=== PATIENT | male | born 1955 | race Caucasian/White ===

== ENCOUNTER 2019-03-15 16:14 | Inpatient (IN) | payer BC ==
[~2019-03-15] VITALS: Ht 182.9 cm; Wt 127.9 kg
[~2019-03-15 16:14] MED LIST: ASPI-1264 PO; ATOR80TA PO; CARV10CP PO; CLOP75TA35 PO; LISI-600 PO; NIA500ERT PO; NITR0.4T48 SL; PANT40TA4 PO; SUCR1TAB PO
[2019-03-15 17:12] LABS: BASOPHILS # (AUTO) 0.1 X10'3 (0-0.2); BASOPHILS % (AUTO) 0.6 % (0-1); EOSINOPHILS # (AUTO) 0.4 X10'3 (0-0.9); EOSINOPHILS % (AUTO) 4.1 % (0-6); HEMATOCRIT 48.3 % (42.0-52.0); HEMOGLOBIN 16.2 g/dl (14.0-17.9); LYMPHOCYTES # (AUTO) 2.1 X10'3 (1.1-4.8); LYMPHOCYTES % (AUTO) 24.2 % (21-51); MEAN CORPUSCULAR HEMOGLOBIN 29.9 PG (27.0-31.0); MEAN CORPUSCULAR HGB CONC 33.5 g/dL (33.0-36.5); MEAN CORPUSCULAR VOLUME 89.2 FL (78-98); MEAN PLATELET VOLUME 8.3 FL (7.4-10.4); MONOCYTES # (AUTO) 1.1 X10'3 (0-0.9); MONOCYTES % (AUTO) 12.5 % (2-12); NEUTROPHILS # (AUTO) 5.1 X10'3 (1.8-7.7); NEUTROPHILS % (AUTO) 58.6 % (42-75); PLATELET COUNT 164 X10'3 (140-440); RED BLOOD COUNT 5.42 X10'6 (4.70-6.10); RED CELL DISTRIBUTION WIDTH 14.7 % (11.5-14.5); WHITE BLOOD COUNT 8.7 X10'3 (4.5-11.0)
[2019-03-15 17:26] LABS: PARTIAL THROMBOPLASTIN TIME 26 SECONDS (22-32)
[2019-03-15 17:29] LABS: ALANINE AMINOTRANSFERASE 73 U/L (12-78); ALBUMIN 4.3 G/DL (3.4-5.0); ALBUMIN/GLOBULIN RATIO 1.2 (1.1-1.5); ALKALINE PHOSPHATASE 66 IU/L (46-116); ANION GAP 10 (8-16); BILIRUBIN,TOTAL 0.4 MG/DL (0.1-1.0); BLOOD UREA NITROGEN 25 MG/DL (7-18); BUN/CREATININE RATIO 23.8 (5.4-32.0); CALCIUM 9.6 MG/DL (8.5-10.1); CHLORIDE 106 MMOL/L (99-107); CREATININE 1.05 MG/DL (0.60-1.10); SODIUM 141 MMOL/L (135-145); TOTAL CARBON DIOXIDE 25.5 MMOL/L (24-32); TOTAL PROTEIN 7.8 G/DL (6.4-8.2); eGFR 71 ML/MIN
[2019-03-15 17:32] LABS: ASPARTATE AMINO TRANSFERASE 29 U/L (10-37); GLUCOSE 101 MG/DL (70-104); POTASSIUM 4.4 MMOL/L (3.5-5.1)
[2019-03-15] MEDS ORDERED: morphine 4 MG/ML inj SYRINge IV ONE (18:40)
[2019-03-15] MEDS ORDERED: nitroGLYCERIN 0.4mg SUBLingual tab SL PRN ×3 (18:40→19:45)
[2019-03-15] MEDS ORDERED: aspirin 81mg tab.chew PO ONE (18:40)
[2019-03-15] MEDS ORDERED: ondansetron/PF 4mg/2ml inj IV ONE (18:40)
[2019-03-15] MEDS ORDERED: magnesium 2GM in 50ml NS 50 ML IV PRN (19:45)
[2019-03-15] MEDS ORDERED: acetaminophen 325mg tablet PO PRN (19:45)
[2019-03-15] MEDS ORDERED: magnesium 4gm in 100ml NS 100 ML IV PRN (19:45)
[2019-03-15] MEDS ORDERED: aminophylline 250mg/10ml inj. IV PRN (19:45)
[2019-03-15] MEDS ORDERED: regadenoson 0.4mg/5ml syringe IV PRN (19:45)
[2019-03-15] MEDS ORDERED: potassium Cl 20 mEq SR tablet PO PRN ×2 (19:45)
[2019-03-15] MEDS ORDERED: metoprolol tartrate 1mg/ml inj IV PRN (19:45)
[2019-03-15] MEDS ORDERED: potassium CL 10mEq/100ml bag 100 ML IV PRN ×2 (19:45)
[2019-03-15] MEDS ORDERED: docusate sod 100mg capsule PO PRN (19:45)
[2019-03-15] MEDS ORDERED: mag hydrox/Alum hydrox/simeth 30ml oral suspension PO PRN (19:45)
[2019-03-15] MEDS ORDERED: HYDROcodone/acetaminophen 10/325mg tab PO PRN (19:45)
[2019-03-15] MEDS ORDERED: HYDROcodone/acetaminophen 5mg/325mg tablet PO PRN (19:45)
[2019-03-15] MEDS: clopidogrel 75mg tablet PO SCH (20:15)
[2019-03-15] MEDS: carvedilol 6.25mg tablet PO SCH (20:15)
[2019-03-15] MEDS: atorvastatin 20mg tablet PO SCH (20:15)
[2019-03-15] MEDS: aspirin 325mg tablet PO SCH (20:16)
[2019-03-15] MEDS: lisinopril 20mg tablet PO SCH (20:16)
[2019-03-15] MEDS ORDERED: non-formulary drug (Atorvastatin Calcium* (Lipitor*) 80 MG) PO SCH (21:00)
[2019-03-15] MEDS ORDERED: CARVEDILOL PHOSPHATE 20 MG PO SCH (21:00)
--- NOTE | 2019-03-15 21:45 | NUR ---
Patient in room MED 313. I have received report from Tahira TAYLOR RN and had the opportunity to ask questions and assume patient care.
[2019-03-15 22:00] VITALS: BP 120/61
[2019-03-15] MEDS: ondansetron/PF 4mg/2ml inj IV PRN (22:09)
[2019-03-15] MEDS: niacin 500mg ER (Niaspan) tablet PO SCH (22:20)
[2019-03-16] VITALS (16 sets, daily range): BP systolic 86–123; BP diastolic 44–81
--- NOTE | 2019-03-16 01:00 | NUR ---
SPOKE WITH dR. Edward, HE IS CANCELLING TOM AND NPO MIDNIGHT ORDERS, WOULD JUST LIKE CARDIOLOGY TO DECIDE PLAN OF TREATMENT IN AM.
[2019-03-16] MEDS ORDERED: LORazepam 2 mg/ml vial IV PRN (04:45)
[2019-03-16 05:47] LABS: BASOPHILS % (AUTO) 0.5 % (0-1); EOSINOPHILS # (AUTO) 0.2 X10'3 (0-0.9); EOSINOPHILS % (AUTO) 2.6 % (0-6); HEMATOCRIT 44.7 % (42.0-52.0); HEMOGLOBIN 14.6 g/dl (14.0-17.9); LYMPHOCYTES # (AUTO) 1.6 X10'3 (1.1-4.8); LYMPHOCYTES % (AUTO) 20.1 % (21-51); MEAN CORPUSCULAR HEMOGLOBIN 29.5 PG (27.0-31.0); MEAN CORPUSCULAR HGB CONC 32.7 g/dL (33.0-36.5); MEAN PLATELET VOLUME 8.3 FL (7.4-10.4); MONOCYTES # (AUTO) 0.6 X10'3 (0-0.9); MONOCYTES % (AUTO) 7.8 % (2-12); NEUTROPHILS # (AUTO) 5.5 X10'3 (1.8-7.7); PLATELET COUNT 131 X10'3 (140-440); RED BLOOD COUNT 4.96 X10'6 (4.70-6.10); RED CELL DISTRIBUTION WIDTH 14.3 % (11.5-14.5)
[2019-03-16 05:52] LABS: ALANINE AMINOTRANSFERASE 68 U/L (12-78); ALBUMIN 3.7 G/DL (3.4-5.0); ALBUMIN/GLOBULIN RATIO 1.2 (1.1-1.5); ALKALINE PHOSPHATASE 51 IU/L (46-116); ANION GAP 8 (8-16); ASPARTATE AMINO TRANSFERASE 29 U/L (10-37); BILIRUBIN,TOTAL 0.7 MG/DL (0.1-1.0); BLOOD UREA NITROGEN 23 MG/DL (7-18); CHLORIDE 104 MMOL/L (99-107); CREATININE 0.92 MG/DL (0.60-1.10); GLUCOSE 96 MG/DL (70-104); POTASSIUM 4.1 MMOL/L (3.5-5.1); SODIUM 138 MMOL/L (135-145); TOTAL CARBON DIOXIDE 25.8 MMOL/L (24-32); TOTAL PROTEIN 6.7 G/DL (6.4-8.2); eGFR 83 ML/MIN
[2019-03-16 05:59] LABS: CHOL/HDL RATIO 2.7 (0.00-4.99); CHOLESTEROL 163 MG/DL (0-200); HDL CHOLESTEROL 60 MG/DL (35-60); LDL CHOLESTEROL 92 MG/DL (50-100); MAGNESIUM 1.9 MG/DL (1.5-2.4); TRIGLYCERIDES 64 MG/DL (20-135)
--- NOTE | 2019-03-16 06:03 | NUR ---
Problems reprioritized. Patient report given, questions answered & plan of care reviewed with Blake MCBRIDE.
[2019-03-16] MEDS: famotidine 20mg tablet PO SCH ×2 (07:37→20:11)
[2019-03-16] MEDS: ondansetron/PF 4mg/2ml inj IV PRN (07:37)
[2019-03-16] MEDS: folic acid 1mg tablet PO SCH (07:38)
[2019-03-16] MEDS: multivitamins, therapeutics tablet PO SCH (07:38)
[2019-03-16] MEDS: thiamine 100mg tablet PO SCH (07:38)
[2019-03-16] MEDS: carvedilol 6.25mg tablet PO SCH ×2 (07:40→20:13)
[2019-03-16] MEDS: K and/or MAG REPLACEMENT MC SCH (08:00)
[2019-03-16] MEDS ORDERED: LIDOcaine/PRILOcaine 5gm cream TP ONE (09:20)
[2019-03-16] MEDS ORDERED: iohexol 350MG/ML 100ml bottle IV ONE (18:02)
[2019-03-16] MEDS ORDERED: LIDOcaine 1% (10mg/ml)w/preservative injection 20ml MDV ONE (18:02)
[2019-03-16] MEDS ORDERED: midazolam 2 mg/2 ml injection ONE (18:02)
[2019-03-16] MEDS ORDERED: heparin 1,000unit/ml 10ml vial 10 ML ONE (18:02)
[2019-03-16] MEDS ORDERED: fentaNYL/PF 50MCG/1 ML 2ML syringe ONE (18:02)
[2019-03-16] MEDS ORDERED: iohexol 350 MG/ML 50ML vial IV ONE (18:02)
[2019-03-16] MEDS ORDERED: nitroGLYCERIN-Tridil 50MG/D5W 250 ML IV ONE (18:02)
--- NOTE | 2019-03-16 18:16 | NUR ---
Patient in room MED 313. I have received report from Blake MCBRIDE and had the opportunity to ask questions and assume patient care.
[2019-03-16] MEDS ORDERED: verapamil 2.5 mg/ml inj IV ONE (18:21)
--- NOTE | 2019-03-16 18:37 | NUR ---
Problems reprioritized. Patient report given, questions answered & plan of care reviewed with Susanne MCBRIDE.
[2019-03-16] MEDS ORDERED: temazepam 15mg capsule PO PRN (19:40)
[2019-03-16] MEDS ORDERED: normal saline 1000ml 1,000 ML IV ONE (19:40)
[2019-03-16] MEDS: aspirin 325mg tablet PO SCH (20:12)
[2019-03-16] MEDS: lisinopril 20mg tablet PO SCH (20:12)
[2019-03-16] MEDS: clopidogrel 75mg tablet PO SCH (20:12)
[2019-03-16] MEDS: atorvastatin 20mg tablet PO SCH (20:12)
[2019-03-16] MEDS: niacin 500mg ER (Niaspan) tablet PO SCH (20:12)
[2019-03-16] MEDS: LORazepam 1 MG tablet PO PRN (20:42)
[2019-03-17] VITALS: BP 86/59
[2019-03-17 01:00] VITALS: BP 97/59
[2019-03-17 02:00] VITALS: BP 101/64
[2019-03-17 03:00] VITALS: BP 98/54
[2019-03-17] MEDS: LORazepam 1 MG tablet PO PRN (03:09)
--- NOTE | 2019-03-17 05:50 | NUR ---
[id number] MESSAGE: 313 pt Blue. FYI SB down to 39, has been ravinder last two nights. - Brandi [phone]
[2019-03-17 05:51] LABS: ALANINE AMINOTRANSFERASE 62 U/L (12-78); ALBUMIN 3.6 G/DL (3.4-5.0); ALBUMIN/GLOBULIN RATIO 1.3 (1.1-1.5); ALKALINE PHOSPHATASE 52 IU/L (46-116); ANION GAP 6 (8-16); ASPARTATE AMINO TRANSFERASE 27 U/L (10-37); BILIRUBIN,TOTAL 0.8 MG/DL (0.1-1.0); BLOOD UREA NITROGEN 15 MG/DL (7-18); BUN/CREATININE RATIO 15.5 (5.4-32.0); CALCIUM 8.6 MG/DL (8.5-10.1); CHLORIDE 108 MMOL/L (99-107); CREATININE 0.97 MG/DL (0.60-1.10); GLUCOSE 95 MG/DL (70-104); POTASSIUM 4.1 MMOL/L (3.5-5.1); SODIUM 143 MMOL/L (135-145); TOTAL CARBON DIOXIDE 29.3 MMOL/L (24-32); TOTAL PROTEIN 6.4 G/DL (6.4-8.2); eGFR 78 ML/MIN
[2019-03-17 05:55] LABS: BASOPHILS % (AUTO) 0.6 % (0-1); EOSINOPHILS # (AUTO) 0.3 X10'3 (0-0.9); EOSINOPHILS % (AUTO) 4.5 % (0-6); HEMATOCRIT 43.5 % (42.0-52.0); HEMOGLOBIN 14.3 g/dl (14.0-17.9); LYMPHOCYTES # (AUTO) 1.7 X10'3 (1.1-4.8); LYMPHOCYTES % (AUTO) 29.5 % (21-51); MEAN CORPUSCULAR HEMOGLOBIN 29.7 PG (27.0-31.0); MEAN CORPUSCULAR HGB CONC 32.8 g/dL (33.0-36.5); MEAN CORPUSCULAR VOLUME 90.4 FL (78-98); MEAN PLATELET VOLUME 8.2 FL (7.4-10.4); MONOCYTES # (AUTO) 0.6 X10'3 (0-0.9); MONOCYTES % (AUTO) 10.8 % (2-12); NEUTROPHILS # (AUTO) 3.2 X10'3 (1.8-7.7); NEUTROPHILS % (AUTO) 54.6 % (42-75); PLATELET COUNT 127 X10'3 (140-440); RED BLOOD COUNT 4.81 X10'6 (4.70-6.10); RED CELL DISTRIBUTION WIDTH 14.5 % (11.5-14.5); WHITE BLOOD COUNT 5.9 X10'3 (4.5-11.0)
[2019-03-17 06:00] VITALS: BP 97/62
--- NOTE | 2019-03-17 06:10 | NUR ---
Problems reprioritized. Patient report given, questions answered & plan of care reviewed with Blake MCBRIDE.
[2019-03-17] MEDS: K and/or MAG REPLACEMENT MC SCH (08:00)
[2019-03-17] MEDS: folic acid 1mg tablet PO SCH (08:15)
[2019-03-17] MEDS: multivitamins, therapeutics tablet PO SCH (08:15)
[2019-03-17] MEDS: thiamine 100mg tablet PO SCH (08:15)
[2019-03-17] MEDS: famotidine 20mg tablet PO SCH (08:16)
[2019-03-17] MEDS: carvedilol 6.25mg tablet PO SCH (08:17)
[2019-03-17 11:00] VITALS: BP 111/75
--- NOTE | 2019-03-17 12:10 | NUR ---
PAGER ID: [phone] MESSAGE: [id number] Tushar Mcarthur. pt would like to be d/c'd. if not, he is saying he will leave AMA. thank you. Blake MCBRIDE ext [phone]
--- NOTE | 2019-03-17 12:35 | NUR ---
d/c education provided including medications and follow up; all questions answered. pt removed from cardiac monitoring, IV removed; cannula intact. pt refused wheel chair and ambulated downstairs with a steady gait and all belongings.
--- NOTE | 2019-03-17 18:10 | NUR ---
Patient in room MED 313. I have received report from Blake MCBRIDE and had the opportunity to ask questions and assume patient care. Addendum: 03/17/19 at 1811 by Susanne Schafer RN wrong pt
== END 2019-03-17 12:35 | disposition home or self-care (01) | DRG 287 ==
LOC: ER 16:14 → MED 3N 21:23 → CMPBEDREQ 21:32
PROVIDERS: ADMIT Family Medicine; ATTEND Internal Medicine
PROC: 4A023N7 Measurement of Cardiac Sampling and Pressure, Left Heart, Percutaneous Approach (ICD-10-PCS; principal; 2019-03-16)
PROC: B2111ZZ Fluoroscopy of Multiple Coronary Arteries using Low Osmolar Contrast (ICD-10-PCS; 2019-03-16)
PROC: B2151ZZ Fluoroscopy of Left Heart using Low Osmolar Contrast (ICD-10-PCS; 2019-03-16)
DX: I25.110 Atherosclerotic heart disease of native coronary artery with unstable angina pectoris (principal); I24.9 Acute ischemic heart disease, unspecified; E78.00 Pure hypercholesterolemia, unspecified; E78.5 Hyperlipidemia, unspecified; I10 Essential (primary) hypertension; M19.90 Unspecified osteoarthritis, unspecified site; M47.9 Spondylosis, unspecified; Z82.41 Family history of sudden cardiac death; Z82.49 Family history of ischemic heart disease and other diseases of the circulatory system; Z87.11 Personal history of peptic ulcer disease; Z95.5 Presence of coronary angioplasty implant and graft; Z79.899 Other long term (current) drug therapy; Z79.82 Long term (current) use of aspirin
CPT/HCPCS: 36415; 71045; 80053; 80061; 83735; 84484; 85025; 85610; 85730; 87081; 93005; 93306; 93458; 96374; 96375; 99152; 99153; 99285; A4620; A6258; C1769; C1894; G0378; J1644; J2001; J2250; J2270; J2405; J3010; J3490; J7030; Q9967

== ENCOUNTER 2021-11-05 10:53 | Inpatient (IN) | payer BC, MEDICARE ==
[~2021-11-05] VITALS: Ht 182.9 cm; Wt 122.7 kg
[~2021-11-05 10:53] MED LIST changes: +CLOP75TA34 PO; -CLOP75TA35 PO; -LISI-600 PO; +LISI20TA28 PO; -NITR0.4T48 SL; +OMEG1CAP61 PO; -PANT40TA4 PO; -SUCR1TAB PO; +ZET10T PO
[2021-11-05] MEDS ORDERED: aspirin 81mg tab.chew PO ONE ×2 (11:15→11:50)
[2021-11-05] MEDS: nitroGLYCERIN 0.4mg SUBLingual tab SL PRN ×2 (11:32→11:41)
[2021-11-05 11:39] LABS: BASOPHILS # (AUTO) 0.1 X10'3 (0-0.2); BASOPHILS % (AUTO) 1.5 % (0-1); EOSINOPHILS # (AUTO) 0.2 X10'3 (0-0.9); EOSINOPHILS % (AUTO) 3.6 % (0-6); HEMATOCRIT 45.6 % (42.0-52.0); LYMPHOCYTES # (AUTO) 1.4 X10'3 (1.1-4.8); LYMPHOCYTES % (AUTO) 27.6 % (21-51); MEAN CORPUSCULAR HEMOGLOBIN 29.2 PG (27.0-31.0); MEAN CORPUSCULAR HGB CONC 32.9 g/dL (33.0-36.5); MEAN PLATELET VOLUME 7.7 FL (7.4-10.4); MONOCYTES # (AUTO) 0.5 X10'3 (0-0.9); NEUTROPHILS % (AUTO) 58.3 % (42-75); PLATELET COUNT 169 X10'3 (140-440); RED BLOOD COUNT 5.12 X10'6 (4.70-6.10); RED CELL DISTRIBUTION WIDTH 14.9 % (11.5-14.5); WHITE BLOOD COUNT 5.2 X10'3 (4.5-11.0)
--- NOTE | 2021-11-05 11:40 | NUR ---
Patient states he stopped taking Eliquis two days ago when the chest pressure began.
--- NOTE | 2021-11-05 11:43 | NUR ---
Patient given sublingual Nitro while pain was at 8/10; pain decreased to 5/10. Additional dose of Nitro given.
--- NOTE | 2021-11-05 11:49 | NUR ---
Patient reports pain in back 3/10.
[2021-11-05] MEDS ORDERED: metoprolol tartrate 1mg/ml inj IV ONE (11:50)
[2021-11-05] MEDS ORDERED: ondansetron/PF 4mg/2ml inj IV ONE (11:50)
[2021-11-05 12:05] LABS: ALANINE AMINOTRANSFERASE 43 U/L (12-78); ALBUMIN 4.2 G/DL (3.4-5.0); ALBUMIN/GLOBULIN RATIO 1.4 (1.1-1.5); ALKALINE PHOSPHATASE 53 IU/L (46-116); ANION GAP 9 (8-16); ASPARTATE AMINO TRANSFERASE 22 U/L (10-37); BILIRUBIN,TOTAL 0.6 MG/DL (0.1-1.0); BLOOD UREA NITROGEN 17 MG/DL (7-18); BUN/CREATININE RATIO 16.8 (5.4-32.0); CHLORIDE 106 MMOL/L (99-107); CREATININE 1.01 MG/DL (0.60-1.10); GLUCOSE 130 MG/DL (70-104); POTASSIUM 3.8 MMOL/L (3.5-5.1); SODIUM 140 MMOL/L (135-145); TOTAL CARBON DIOXIDE 25.1 MMOL/L (24-32); TOTAL PROTEIN 7.3 G/DL (6.4-8.2); eGFR 74 ML/MIN
[2021-11-05] MEDS ORDERED: iohexol 350MG/ML 100ml bottle IV ONE (12:09)
--- NOTE | 2021-11-05 13:08 | NUR ---
dr. low made aware about patient's hr 65-67, md said to hold lopressor.
--- NOTE | 2021-11-05 13:15 | NUR ---
called [facility](2nd time) Cheryl RN/ went to lunch.
[2021-11-05] MEDS: morphine 4 MG/ML inj SYRINge IV PRN ×2 (13:25→14:48)
[2021-11-05] MEDS ORDERED: nitroGLYCERIN 1gm ointment UD TP ONE (14:25)
[2021-11-05] MEDS ORDERED: magnesium 4gm in 100ml NS 100 ML IV PRN (14:50)
[2021-11-05] MEDS ORDERED: acetaminophen 325mg tablet PO PRN ×2 (14:50)
[2021-11-05] MEDS ORDERED: magnesium 2GM in 50ml NS 50 ML IV PRN (14:50)
[2021-11-05] MEDS ORDERED: potassium CL 10mEq/100ml bag 100 ML IV PRN (14:50)
[2021-11-05] MEDS ORDERED: morphine 2 MG/ML inj. syringe IV PRN (14:50)
[2021-11-05] MEDS ORDERED: ondansetron/PF 4mg/2ml inj IV PRN (14:50)
[2021-11-05] MEDS ORDERED: magnesium Cl slow-release 64mg tablet PO PRN (14:50)
[2021-11-05] MEDS ORDERED: potassium Cl 20 mEq SR tablet PO PRN ×2 (14:50)
[2021-11-05] MEDS: normal saline 1000ml 1,000 ML IV SCH (16:23)
[2021-11-05] MEDS ORDERED: aminophylline 500mg/20ml vial IV PRN (17:20)
[2021-11-05] MEDS ORDERED: regadenoson 0.4mg/5ml syringe IV PRN (17:20)
[2021-11-05] MEDS ORDERED: metoprolol tartrate 1mg/ml inj IV PRN (17:20)
[2021-11-05] MEDS ORDERED: nitroGLYCERIN 0.4mg SUBLingual tab SL PRN (17:20)
[2021-11-05] MEDS: HYDROcodone/acetaminophen 5mg/325mg tablet PO PRN (17:27)
--- NOTE | 2021-11-05 19:18 | NUR ---
pt resting comfortably, vss, denies needs
[2021-11-05] MEDS: K and/or MAG REPLACEMENT MC SCH (20:00)
--- NOTE | 2021-11-05 20:46 | NUR ---
Report called to RAE Valente for pt going to rm [id number]
[2021-11-05] MEDS: carvedilol 6.25mg tablet PO SCH (20:53)
[2021-11-05] MEDS: heparin, porcine 5000 units/ml vial SQ SCH (20:53)
[2021-11-05] MEDS: clopidogrel 75mg tablet PO SCH (21:47)
[2021-11-05] MEDS: lisinopril 20mg tablet PO SCH (21:47)
[2021-11-05] MEDS: atorvastatin 20mg tablet PO SCH (21:47)
[2021-11-05] MEDS: niacin 500mg ER (Niaspan) tablet PO SCH (21:48)
[2021-11-05 21:50] VITALS: BP 129/82
[2021-11-05 22:00] VITALS: BP 108/79
[2021-11-05] MEDS: temazepam 15mg capsule PO PRN (22:01)
[2021-11-06] VITALS (10 sets, daily range): BP systolic 106–145; BP diastolic 57–82
[2021-11-06 06:24] LABS: BASOPHILS % (AUTO) 0.6 % (0-1); EOSINOPHILS # (AUTO) 0.3 X10'3 (0-0.9); EOSINOPHILS % (AUTO) 5.3 % (0-6); HEMATOCRIT 43.1 % (42.0-52.0); HEMOGLOBIN 13.8 g/dl (14.0-17.9); LYMPHOCYTES # (AUTO) 1.6 X10'3 (1.1-4.8); LYMPHOCYTES % (AUTO) 30.5 % (21-51); MEAN CORPUSCULAR HGB CONC 32.1 g/dL (33.0-36.5); MEAN CORPUSCULAR VOLUME 90.2 FL (78-98); MEAN PLATELET VOLUME 7.8 FL (7.4-10.4); MONOCYTES # (AUTO) 0.5 X10'3 (0-0.9); MONOCYTES % (AUTO) 10.4 % (2-12); NEUTROPHILS # (AUTO) 2.8 X10'3 (1.8-7.7); NEUTROPHILS % (AUTO) 53.2 % (42-75); PLATELET COUNT 153 X10'3 (140-440); RED BLOOD COUNT 4.77 X10'6 (4.70-6.10); WHITE BLOOD COUNT 5.2 X10'3 (4.5-11.0)
[2021-11-06 06:37] LABS: ALANINE AMINOTRANSFERASE 41 U/L (12-78); ALBUMIN 3.5 G/DL (3.4-5.0); ALBUMIN/GLOBULIN RATIO 1.3 (1.1-1.5); ALKALINE PHOSPHATASE 45 IU/L (46-116); ANION GAP 9 (8-16); ASPARTATE AMINO TRANSFERASE 20 U/L (10-37); BILIRUBIN,TOTAL 0.8 MG/DL (0.1-1.0); BLOOD UREA NITROGEN 16 MG/DL (7-18); BUN/CREATININE RATIO 21.1 (5.4-32.0); CALCIUM 8.9 MG/DL (8.5-10.1); CHLORIDE 107 MMOL/L (99-107); CHOL/HDL RATIO 2.9 (0.00-4.99); CHOLESTEROL 146 MG/DL (0-200); CREATININE 0.76 MG/DL (0.60-1.10); GLUCOSE 105 MG/DL (70-104); HDL CHOLESTEROL 51 MG/DL (35-60); LDL CHOLESTEROL 76 MG/DL (50-100); POTASSIUM 4.3 MMOL/L (3.5-5.1); SODIUM 144 MMOL/L (135-145); TOTAL CARBON DIOXIDE 28.3 MMOL/L (24-32); TOTAL PROTEIN 6.3 G/DL (6.4-8.2); TRIGLYCERIDES 94 MG/DL (20-135); eGFR > 90 ML/MIN
--- NOTE | 2021-11-06 07:09 | NUR ---
Patient upset with care on the floor, stating we are treating his chest pain as if we are treating a cold. NOC RN offered nitro patient refused and wanted morphine. 1mg of morphine given which relieved pain. Also stated that he feels his blood pressure is low because of the nitro and stated there is no way we would know since he is not attached to a monitor. Blood pressure checked 111/82 with a heart rate of 63. Patient asking why there are so many "not local" nurses. Assured patient that I am core staff and will do my best to provide him with great care. Patient does not want wilberto scan, stated he discussed his wishes with Dr. Deshpande, awaiting his arrival this AM.
--- NOTE | 2021-11-06 07:09 | NUR ---
Patient in room MED 318. I have received report from RAE MARTINEZ and had the opportunity to ask questions and assume patient care.
[2021-11-06] MEDS: ezetimibe 10mg tablet PO SCH (08:00)
[2021-11-06] MEDS: carvedilol 6.25mg tablet PO SCH ×2 (08:00→21:00)
[2021-11-06] MEDS: K and/or MAG REPLACEMENT MC SCH ×2 (08:00→21:01)
[2021-11-06] MEDS: heparin, porcine 5000 units/ml vial SQ SCH ×2 (08:00→21:09)
[2021-11-06] MEDS: normal saline 1000ml 1,000 ML IV SCH ×3 (08:01→23:50)
--- NOTE | 2021-11-06 08:33 | NUR ---
Nuclear medicine here to inject patient, he is wanting to hold off at this time to talk to the shredding floor equipment operator regarding the scan. Called Lacy Ramon and left message.
[2021-11-06] MEDS: HYDROcodone/acetaminophen 5mg/325mg tablet PO PRN ×2 (08:38→18:47)
--- NOTE | 2021-11-06 10:59 | NUR ---
Patient refused stress test, cardiac cath to be performed later today
[2021-11-06] MEDS ORDERED: verapamil 2.5 mg/ml inj IV ONE (14:21)
[2021-11-06] MEDS ORDERED: nitroGLYCERIN-Tridil 50MG/D5W 250 ML IV ONE (14:21)
[2021-11-06] MEDS ORDERED: midazolam 1 mg/ML 2ml injection ONE ×2 (14:21→16:51)
[2021-11-06] MEDS ORDERED: iohexol 350 MG/1 ML 200ml bottle ONE (14:22)
[2021-11-06] MEDS ORDERED: heparin 1,000unit/ml 10ml vial 10 ML ONE (14:22)
[2021-11-06] MEDS ORDERED: heparin 1,000 UNITS/NS 500ml 500 ML ONE ×2 (14:22→16:37)
[2021-11-06] MEDS ORDERED: fentaNYL/PF 50MCG/1 ML 2ML syringe ONE (14:22)
[2021-11-06] MEDS ORDERED: LIDOcaine 1% (10mg/ml)w/preservative inj. 20ml MDV ONE (14:23)
[2021-11-06] MEDS ORDERED: normal saline 1000ml 1,000 ML IV ONE (17:50)
--- NOTE | 2021-11-06 18:29 | NUR ---
Problems reprioritized. Patient report given, questions answered & plan of care reviewed with RAE Bright.
--- NOTE | 2021-11-06 19:11 | NUR ---
talked to Dr. Ruiz about discharging patient per his request. Joseph asked if Ok with [facility]ram[facility]. Called Dr. ROSARIO - he states "I like to watch the sheath site for 4 hours after the pressure device is removed and hydrate the patient to flush the kidneys. so if it's ok after that with Dr. Ruiz that's fine." will notify Dr. Ruiz.
--- NOTE | 2021-11-06 20:43 | NUR ---
pt s/p radial sheath removal from phlebotomist lab assistant. noted pt bleeding from radial site - perclose still activated. will hold heparin at this time. plavix given as ordered.
[2021-11-06] MEDS: niacin 500mg ER (Niaspan) tablet PO SCH (20:56)
[2021-11-06] MEDS: clopidogrel 75mg tablet PO SCH (20:56)
[2021-11-06] MEDS: atorvastatin 20mg tablet PO SCH (20:56)
[2021-11-06] MEDS: lisinopril 20mg tablet PO SCH (20:57)
[2021-11-06] MEDS: temazepam 15mg capsule PO PRN (23:52)
--- NOTE | 2021-11-06 23:59 | NUR ---
removed device from wrist. no active bleeding noted. not leaking. still has same tiny bruises on peripheral of punctures site. cleaned dried blood from the wrist. will continue to monitor. pt requested sleeping pill.
[2021-11-07 02:30] VITALS: BP 94/40
[2021-11-07] MEDS: HYDROcodone/acetaminophen 5mg/325mg tablet PO PRN (04:15)
[2021-11-07 06:02] LABS: BASOPHILS # (AUTO) 0.1 X10'3 (0-0.2); BASOPHILS % (AUTO) 1.4 % (0-1); EOSINOPHILS # (AUTO) 0.2 X10'3 (0-0.9); EOSINOPHILS % (AUTO) 3.9 % (0-6); HEMATOCRIT 42.9 % (42.0-52.0); HEMOGLOBIN 13.8 g/dl (14.0-17.9); LYMPHOCYTES # (AUTO) 1.5 X10'3 (1.1-4.8); LYMPHOCYTES % (AUTO) 26.3 % (21-51); MEAN CORPUSCULAR HEMOGLOBIN 28.6 PG (27.0-31.0); MEAN CORPUSCULAR HGB CONC 32.1 g/dL (33.0-36.5); MEAN CORPUSCULAR VOLUME 89.1 FL (78-98); MEAN PLATELET VOLUME 7.9 FL (7.4-10.4); MONOCYTES # (AUTO) 0.5 X10'3 (0-0.9); MONOCYTES % (AUTO) 8.1 % (2-12); NEUTROPHILS # (AUTO) 3.4 X10'3 (1.8-7.7); NEUTROPHILS % (AUTO) 60.3 % (42-75); PLATELET COUNT 139 X10'3 (140-440); RED BLOOD COUNT 4.81 X10'6 (4.70-6.10); RED CELL DISTRIBUTION WIDTH 14.8 % (11.5-14.5); WHITE BLOOD COUNT 5.7 X10'3 (4.5-11.0)
--- NOTE | 2021-11-07 06:16 | NUR ---
reported to days. noted pt resting w/o distress. anticipate discharge today
--- NOTE | 2021-11-07 06:20 | NUR ---
received patient report from RAE Bright
[2021-11-07 06:49] LABS: ALANINE AMINOTRANSFERASE 36 U/L (12-78); ALBUMIN 3.6 G/DL (3.4-5.0); ALBUMIN/GLOBULIN RATIO 1.4 (1.1-1.5); ALKALINE PHOSPHATASE 44 IU/L (46-116); ANION GAP 11 (8-16); ASPARTATE AMINO TRANSFERASE 22 U/L (10-37); BILIRUBIN,TOTAL 0.9 MG/DL (0.1-1.0); BLOOD UREA NITROGEN 14 MG/DL (7-18); BUN/CREATININE RATIO 19.4 (5.4-32.0); CALCIUM 8.7 MG/DL (8.5-10.1); CHLORIDE 109 MMOL/L (99-107); CREATININE 0.72 MG/DL (0.60-1.10); GLUCOSE 90 MG/DL (70-104); POTASSIUM 4.2 MMOL/L (3.5-5.1); SODIUM 145 MMOL/L (135-145); TOTAL CARBON DIOXIDE 24.6 MMOL/L (24-32); TOTAL PROTEIN 6.2 G/DL (6.4-8.2); eGFR > 90 ML/MIN
[2021-11-07 07:07] VITALS: BP 134/78
--- NOTE | 2021-11-07 07:32 | NUR ---
Patient is refusing IV fluids.
[2021-11-07] MEDS: K and/or MAG REPLACEMENT MC SCH (08:00)
[2021-11-07] MEDS: heparin, porcine 5000 units/ml vial SQ SCH (08:11)
[2021-11-07] MEDS: ezetimibe 10mg tablet PO SCH (08:11)
[2021-11-07] MEDS: carvedilol 6.25mg tablet PO SCH (08:11)
--- NOTE | 2021-11-07 11:30 | NUR ---
Patient was discharged at 1130. He left by himself to home by private vehicle ([employer]). IV has been removed with cannula intact and TELE monitor was also removed. Patient was discharged without new medications but discharge instructions were provided and patient demonstrated understanding of said instructions. Patient was stable and appropriate for discharge.
== END 2021-11-07 10:50 | disposition home or self-care (01) | DRG 287 ==
LOC: ER 10:54 → ED HOLD 14:52 → MED 3N 21:05
PROVIDERS: ADMIT Internal Medicine; ATTEND Internal Medicine
PROC: B32T1ZZ Computerized Tomography (CT Scan) of Left Pulmonary Artery using Low Osmolar Contrast (ICD-10-PCS; 2021-11-05)
PROC: B3201ZZ Computerized Tomography (CT Scan) of Thoracic Aorta using Low Osmolar Contrast (ICD-10-PCS; 2021-11-05)
PROC: B32S1ZZ Computerized Tomography (CT Scan) of Right Pulmonary Artery using Low Osmolar Contrast (ICD-10-PCS; 2021-11-05)
PROC: B4201ZZ Computerized Tomography (CT Scan) of Abdominal Aorta using Low Osmolar Contrast (ICD-10-PCS; 2021-11-05)
PROC: B4241ZZ Computerized Tomography (CT Scan) of Superior Mesenteric Artery using Low Osmolar Contrast (ICD-10-PCS; 2021-11-05)
PROC: B4281ZZ Computerized Tomography (CT Scan) of Bilateral Renal Arteries using Low Osmolar Contrast (ICD-10-PCS; 2021-11-05)
PROC: B42C1ZZ Computerized Tomography (CT Scan) of Pelvic Arteries using Low Osmolar Contrast (ICD-10-PCS; 2021-11-05)
PROC: B42H1ZZ Computerized Tomography (CT Scan) of Bilateral Lower Extremity Arteries using Low Osmolar Contrast (ICD-10-PCS; 2021-11-05)
PROC: B4211ZZ Computerized Tomography (CT Scan) of Celiac Artery using Low Osmolar Contrast (ICD-10-PCS; 2021-11-05)
PROC: 4A023N7 Measurement of Cardiac Sampling and Pressure, Left Heart, Percutaneous Approach (ICD-10-PCS; principal; 2021-11-06)
PROC: B2111ZZ Fluoroscopy of Multiple Coronary Arteries using Low Osmolar Contrast (ICD-10-PCS; 2021-11-06)
PROC: B2151ZZ Fluoroscopy of Left Heart using Low Osmolar Contrast (ICD-10-PCS; 2021-11-06)
DX: I25.110 Atherosclerotic heart disease of native coronary artery with unstable angina pectoris (principal); M19.90 Unspecified osteoarthritis, unspecified site; E66.9 Obesity, unspecified; E78.00 Pure hypercholesterolemia, unspecified; I10 Essential (primary) hypertension; E78.5 Hyperlipidemia, unspecified; Z79.899 Other long term (current) drug therapy; Z82.41 Family history of sudden cardiac death; Z82.49 Family history of ischemic heart disease and other diseases of the circulatory system; Z87.891 Personal history of nicotine dependence; Z95.5 Presence of coronary angioplasty implant and graft; Z68.36 Body mass index [BMI] 36.0-36.9, adult
CPT/HCPCS: 36415; 71045; 71275; 74174; 76937; 80053; 80061; 83880; 84484; 85025; 87081; 93005; 93306; 93458; 97161; 97530; 99152; 99153; 99285; A4620; A5120; A6258; C1769; C1894; G0378; J1644; J2250; J2270; J2405; J3010; J3490; J7030; Q9967